=== PATIENT | male | born 1970 | race Hispanic/Latino ===

== ENCOUNTER 2023-09-28 18:40 | Inpatient (IN) | payer SELFPAY ==
[2023-09-28 19:38] LABS: #Monocytes 0.5 thou/uL (0.11-0.59); #Neutrophils 1.6 thou/uL (1.40-6.50); %Basophils 0.3 % (0.0-1.0); %Eosinophils 0.5 % (0.0-10.0); %Lymphocytes 40.3 % (21.0-51.0); %Monocytes 14.8 % (0.0-10.0); %Neutrophils 43.8 % (42.0-75.0); Hematocrit 41.3 % (42.0-52.0); Hemoglobin 14.3 g/dL (14.0-18.0); Mean Corpuscular HGB CONC 34.6 g/dL (32.0-36.0); Mean Corpuscular Hemoglobin 31.5 pg (27.0-31.0); Mean Platelet Volume 10.1 fL (7.4-10.4); Platelet Count 177 10x3/uL (130-400); RBC Distribution Width 11.9 % (11.5-14.5); Red Blood Cell (RBC) Count 4.54 mill/uL (4.70-6.10); White Blood Cell (WBC) Count 3.7 10x3/uL (4.8-10.8)
[2023-09-28 20:00] LABS: ALT (SGPT) 39 U/L (8-55); AST (SGOT) 37 U/L (5-34); Albumin 3.9 g/dL (3.5-5.0); Alkaline Phosphatase 84 U/L (40-110); Anion Gap 11 mmol/L (10-20); BUN (Urea Nitrogen) 16 mg/dL (8.4-25.7); Bilirubin, Total 0.6 mg/dL (0.2-1.2); CRP (Inflammatory) 0.79 mg/dL (= or < 0.5); Calc. Creatinine Clearance 0 mL/min (70-130); Calcium 8.7 mg/dL (7.8-10.44); Carbon Dioxide 24 mmol/L (22-29); Chloride 105 mmol/L (98-107); Estimated GFR 92; Globulin 2.8 g/dL (2.4-3.5); Glucose 94 mg/dL (70-105); Potassium 3.8 mmol/L (3.5-5.1); Protein, Total 6.7 g/dL (6.0-8.3); Sodium 136 mmol/L (136-145)
[2023-09-28] MEDS ORDERED: Morphine 4 MG/ML VIAL ONE (20:21)
[2023-09-28] MEDS ORDERED: Ondansetron PF 4 MG/2 ML Vial ONE (20:22)
[2023-09-28] MEDS ORDERED: Ondansetron ODT 4 MG TAB SL PRN (21:45)
[2023-09-28] MEDS ORDERED: Ondansetron PF 4 MG/2 ML Vial IVP PRN ×2 (21:45→22:27)
[2023-09-28] MEDS ORDERED: Piperacillin/Tazobactam 4.5 GM VIAL ONE (21:46)
[2023-09-28] MEDS ORDERED: Sodium Chloride 0.9% 100 ML ONE (21:46)
[2023-09-28 22:19] LABS: Bacteria/HPF None Seen HPF (None Seen); Bilirubin Negative (Negative); Blood, Urine Negative (Negative); CAUTI Indications for Culture Pelvic or flank pain; Clarity Clear (Clear); Glucose, Urine (Dipstick) Normal (Negative); Ketone, Urine Trace mg/dL (Negative); Leukocyte Negative Leu/uL (Negative); Nitrite Negative (Negative); Protein, Urine (Dipstick) 20 mg/dL (Neg-Trace); RBC/HPF 0-3 HPF (0-3); Specific Gravity, Urine 1.019 (1.002-1.036); Squamous Epithelial 0-3 HPF (0-3); Urobilinogen Normal mg/dL (Less than 2); WBC/HPF 0-3 HPF (0-3); pH, Urine 6.5 (5.0-9.0)
[2023-09-28 22:21] LABS: Urine Culture Reflex No No
[2023-09-28] MEDS ORDERED: Morphine 2 MG/ML VIAL SLOW IVP PRN (22:27)
[2023-09-28] MEDS ORDERED: Acetaminophen 500 MG TAB PO PRN (22:28)
[2023-09-28] MEDS ORDERED: traMADol HCl 50 MG TAB PO PRN ×2 (22:29→22:30)
[2023-09-28] MEDS: Morphine 4 MG/ML VIAL SLOW IVP PRN (23:10)
[2023-09-28] MEDS: Sodium Chloride 0.9% 1,000 ML IV SCH (23:12)
[2023-09-28] MEDS: Lactated Ringer's 1,000 ML IV SCH (23:28)
[2023-09-28 23:33] VITALS: BMI 26.2
[2023-09-29] MEDS: Piperacillin/Tazobactam 3.375 GM in Sodium Chloride 0.9% 100 ML IVPB SCH (02:24)
[2023-09-29 05:43] LABS: Hematocrit 38.3 % (42.0-52.0); Hemoglobin 13.2 g/dL (14.0-18.0); Manual Diff?? YES; Mean Corpuscular HGB CONC 34.5 g/dL (32.0-36.0); Mean Platelet Volume 10.2 fL (7.4-10.4); Platelet Count 139 10x3/uL (130-400); Red Blood Cell (RBC) Count 4.12 mill/uL (4.70-6.10); White Blood Cell (WBC) Count 2.7 10x3/uL (4.8-10.8)
[2023-09-29 05:44] LABS: Delete Auto Diff?? YES
[2023-09-29 05:57] LABS: INR-International Normal Ratio 1.1; PTT 30.8 sec (22.9-36.1); Prothrombin Time 13.8 sec (12.0-14.7)
[2023-09-29 06:11] LABS: Band 5 % (5-11); CellaVision Operator ID LAB.CLH1; Hypochromia SLIGHT = 6-15 cells HPF (0-5); Large Platelets 3.9 % (0-5); Lymphocytes 33 % (21-51); Monocytes 9 % (0-10); Neutrophil 45 % (42-75); Nucleated RBC (Manual Ct) 1 % (0); Platelet Adequacy Comment Platelets Normal; Polychromasia SLIGHT = 2-3 cells HPF (0-2); Reactive Lymphocytes 9 % (0-10); Total Cell Count 103
[2023-09-29 06:34] LABS: ALT (SGPT) 203 U/L (8-55); AST (SGOT) 375 U/L (5-34); Albumin 3.3 g/dL (3.5-5.0); Alkaline Phosphatase 157 U/L (40-110); Anion Gap 12 mmol/L (10-20); BUN (Urea Nitrogen) 12 mg/dL (8.4-25.7); Bilirubin, Total 1.4 mg/dL (0.2-1.2); Calc. Creatinine Clearance 85 mL/min (70-130); Carbon Dioxide 24 mmol/L (22-29); Chloride 107 mmol/L (98-107); Estimated GFR 82; Globulin 2.3 g/dL (2.4-3.5); Glucose 95 mg/dL (70-105); Potassium 3.6 mmol/L (3.5-5.1); Protein, Total 5.6 g/dL (6.0-8.3); Sodium 139 mmol/L (136-145)
[2023-09-29] MEDS: Famotidine 20 MG TAB PO SCH (10:11)
[2023-09-29] MEDS ORDERED: Iopamidol 370 76% 100 ML VIAL ONE (16:10)
[2023-09-30 04:28] LABS: #Eosinphils 0.1 thou/uL (0.0-0.7); #Monocytes 0.4 thou/uL (0.11-0.59); #Neutrophils 1.5 thou/uL (1.40-6.50); %Basophils 0.3 % (0.0-1.0); %Eosinophils 3.1 % (0.0-10.0); %Lymphocytes 44.8 % (21.0-51.0); %Neutrophils 41.8 % (42.0-75.0); Hematocrit 39.1 % (42.0-52.0); Hemoglobin 13.4 g/dL (14.0-18.0); Mean Corpuscular HGB CONC 34.3 g/dL (32.0-36.0); Mean Corpuscular Hemoglobin 31.6 pg (27.0-31.0); Mean Corpuscular Volume 92.2 fl (78.0-98.0); Mean Platelet Volume 10.2 fL (7.4-10.4); Platelet Count 151 10x3/uL (130-400); RBC Distribution Width 12.1 % (11.5-14.5); Red Blood Cell (RBC) Count 4.24 mill/uL (4.70-6.10); White Blood Cell (WBC) Count 3.6 10x3/uL (4.8-10.8)
[2023-09-30 04:52] LABS: ALT (SGPT) 146 U/L (8-55); AST (SGOT) 128 U/L (5-34); Albumin 3.3 g/dL (3.5-5.0); Alkaline Phosphatase 149 U/L (40-110); Anion Gap 8 mmol/L (10-20); BUN (Urea Nitrogen) 11 mg/dL (8.4-25.7); Bilirubin, Total 0.7 mg/dL (0.2-1.2); Calc. Creatinine Clearance 89 mL/min (70-130); Calcium 8.2 mg/dL (7.8-10.44); Carbon Dioxide 26 mmol/L (22-29); Chloride 108 mmol/L (98-107); Estimated GFR 85; Globulin 2.4 g/dL (2.4-3.5); Glucose 83 mg/dL (70-105); Potassium 3.3 mmol/L (3.5-5.1); Protein, Total 5.7 g/dL (6.0-8.3); Sodium 139 mmol/L (136-145)
[2023-09-30] MEDS ORDERED: Indomethacin 50 MG SUPP ONE (07:13)
[2023-09-30] MEDS ORDERED: Iopamidol 15 ML ONE (07:14)
[2023-09-30] MEDS ORDERED: Dexamethasone 20 MG/5 ML VIAL ONE (07:43)
[2023-09-30] MEDS ORDERED: Rocuronium Bromide 10 MG/ML (10ML VIAL) ONE (07:43)
[2023-09-30] MEDS ORDERED: PROPOFOL 20 ML ONE (07:43)
[2023-09-30] MEDS ORDERED: Lidocaine 1% PF 5 ML VIAL ONE (07:43)
[2023-09-30] MEDS ORDERED: SUCCINYLCHOLINE/SOD CL,ISO/PF 200 MG/10 ML SYRINGE FS ONE (07:43)
[2023-09-30] MEDS ORDERED: Ondansetron PF 4 MG/2 ML Vial ONE (07:43)
[2023-09-30] MEDS ORDERED: fentaNYL 50 mcg/mL 1 mL Vial ONE (07:45)
[2023-09-30] MEDS ORDERED: Meperidine HCl/PF 25 MG/ML VIAL SLOW IVP PRN (08:37)
[2023-09-30] MEDS ORDERED: HYDROmorphone 2 MG/ML VIAL SLOW IVP PRN (08:37)
[2023-09-30] MEDS ORDERED: Promethazine HCl 25 MG/ML VIAL IM PRN (08:37)
[2023-09-30] MEDS ORDERED: Ondansetron HCl/PF 4 MG/2 ML Vial IVP PRN (08:37)
[2023-09-30] MEDS ORDERED: Morphine Sulfate 2 MG/ML SYRINGE SLOW IVP PRN (08:37)
[2023-09-30] MEDS ORDERED: Piperacillin/Tazobactam 3.375 GM VIAL ONE (10:03)
[2023-09-30] MEDS ORDERED: Sodium Chloride 0.9% 100 ML ONE (10:04)
[2023-10-01 03:59] LABS: #Monocytes 0.5 thou/uL (0.11-0.59); #Neutrophils 1.8 thou/uL (1.40-6.50); %Basophils 0.2 % (0.0-1.0); %Eosinophils 0.2 % (0.0-10.0); %Lymphocytes 44.3 % (21.0-51.0); %Neutrophils 43.1 % (42.0-75.0); Hematocrit 38.9 % (42.0-52.0); Hemoglobin 13.6 g/dL (14.0-18.0); Mean Corpuscular Hemoglobin 31.9 pg (27.0-31.0); Mean Corpuscular Volume 91.3 fl (78.0-98.0); Mean Platelet Volume 10.3 fL (7.4-10.4); Platelet Count 162 10x3/uL (130-400); RBC Distribution Width 11.8 % (11.5-14.5); Red Blood Cell (RBC) Count 4.26 mill/uL (4.70-6.10); White Blood Cell (WBC) Count 4.2 10x3/uL (4.8-10.8)
[2023-10-01 04:23] LABS: ALT (SGPT) 119 U/L (8-55); AST (SGOT) 78 U/L (5-34); Albumin 3.2 g/dL (3.5-5.0); Alkaline Phosphatase 163 U/L (40-110); Anion Gap 8 mmol/L (10-20); BUN (Urea Nitrogen) 12 mg/dL (8.4-25.7); Bilirubin, Total 0.8 mg/dL (0.2-1.2); Calc. Creatinine Clearance 95 mL/min (70-130); Calcium 8.3 mg/dL (7.8-10.44); Carbon Dioxide 27 mmol/L (22-29); Chloride 109 mmol/L (98-107); Estimated GFR 93; Globulin 2.4 g/dL (2.4-3.5); Glucose 112 mg/dL (70-105); Potassium 3.9 mmol/L (3.5-5.1); Protein, Total 5.6 g/dL (6.0-8.3); Sodium 140 mmol/L (136-145)
[2023-10-01 08:12] VITALS: TEMP 98.3
[2023-10-01] MEDS ORDERED: Rocuronium Bromide 10 MG/ML (10ML VIAL) ONE ×2 (09:05→09:08)
[2023-10-01] MEDS ORDERED: Dexamethasone 4 mg/ml Vial ONE (09:05)
[2023-10-01] MEDS ORDERED: Ondansetron PF 4 MG/2 ML Vial ONE (09:05)
[2023-10-01] MEDS ORDERED: PROPOFOL 20 ML ONE (09:05)
[2023-10-01] MEDS ORDERED: Fentanyl 250 MCG/5 ML VIAL ONE (09:05)
[2023-10-01] MEDS ORDERED: Lidocaine 1% PF 5 ML VIAL ONE (09:08)
[2023-10-01] MEDS ORDERED: Midazolam HCl 2 mg/2 ml Vial ONE (09:13)
[2023-10-01] MEDS ORDERED: Piperacillin/Tazobactam 3.375 GM VIAL ONE (09:14)
[2023-10-01] MEDS ORDERED: Sodium Chloride 0.9% 100 ML ONE (09:14)
[2023-10-01] MEDS ORDERED: ePHEDrine Sulfate 50 MG/10 ML VIAL ONE (09:42)
[2023-10-01] MEDS ORDERED: Ketorolac Tromethamine 30 MG (1 mL) VIAL ONE (09:48)
[2023-10-01] MEDS ORDERED: SUGAMMADEX SODIUM 200 MG/2 ML VIAL ONE (09:48)
[2023-10-01] MEDS ORDERED: Promethazine HCl 25 MG/ML VIAL IM PRN (10:21)
[2023-10-01] MEDS ORDERED: Ondansetron HCl/PF 4 MG/2 ML Vial IVP PRN (10:21)
[2023-10-01] MEDS ORDERED: fentaNYL PF 100 MCG/2 ML SYRINGE ONE ×2 (10:29→10:48)
[2023-10-01] MEDS ORDERED: Morphine 4 MG/ML VIAL SLOW IVP PRN (11:03)
[2023-10-01] MEDS: HYDROcodone/Acetaminophen 5/325 mg Tablet PO PRN (13:52)
[2023-10-01 14:20] VITALS: BP 119/82
== END 2023-10-01 15:24 | disposition home or self-care (01) | DRG 418 ==
LOC: ERS 18:40 → SURG A 21:34
PROVIDERS: ADMIT Surgery; ATTEND Surgery
PROC: 0F7C8ZZ Dilation of Ampulla of Vater, Via Natural or Artificial Opening Endoscopic (ICD-10-PCS; 2023-09-30)
PROC: 0F778ZZ Dilation of Common Hepatic Duct, Via Natural or Artificial Opening Endoscopic (ICD-10-PCS; 2023-09-30)
PROC: 0F798ZZ Dilation of Common Bile Duct, Via Natural or Artificial Opening Endoscopic (ICD-10-PCS; 2023-09-30)
PROC: 0FT44ZZ Resection of Gallbladder, Percutaneous Endoscopic Approach (ICD-10-PCS; principal; 2023-10-01)
PROC: 3E033XZ Introduction of Vasopressor into Peripheral Vein, Percutaneous Approach (ICD-10-PCS; 2023-10-01)
DX: K80.42 Calculus of bile duct with acute cholecystitis without obstruction (principal); K92.1 Melena; K59.00 Constipation, unspecified
CPT/HCPCS: 36415; 36416; 74177; 74181; 74330; 76705; 80053; 81001; 83605; 83690; 85025; 85610; 85730; 86140; 86850; 86900; 86901; 88304; 96374; 96375; A4649; C1713; J1100; J1885; J2250; J2270; J2405; J2543; J2704; J3010; J3490; J7050; Q9967